=== PATIENT | female | born 1960 | race African-American/Black ===

== ENCOUNTER 2019-11-25 20:49 | Inpatient (IN) | payer SELFPAY ==
[~2019-11-25] VITALS: Ht 165.1 cm; Wt 72.6 kg
[2019-11-25 20:59] VITALS: Ht 165.1 cm; Wt 72.6 kg
[2019-11-25 22:32] LABS: BASOPHIL % 0.2 % (0-2); PLATELET COUNT 107 x10^3mcL (130-400); RED CELL DISTRIBUTION WIDTH 18.3 % (11.5-14.5)
[2019-11-25 23:32] LABS: BILIRUBIN TOTAL 2.2 mg/dL (0.20-1.00); CALCIUM 8.7 mg/dL (8.5-10.1); CARBON DIOXIDE 18.4 mmol/L (21-32); CREATININE SERUM 2.1 mg/dL (0.6-1.0); TOTAL PROTEIN, SERUM 7.1 g/dL (6.4-8.2)
[2019-11-25 23:33] LABS: ALBUMIN 2.4 g/dL (3.4-5.0); POTASSIUM SERUM 5.8 mmol/L (3.5-5.1)
[2019-11-26 00:19] LABS: CHOLESTEROL/HDL RATIO 7.6
[2019-11-26 00:29] LABS: UA SPECIFIC GRAVITY 1.025 (1.005-1.035); microscopic required? YES; urine erythrocyte 3+ (NEGATIVE)
[2019-11-26 00:34] LABS: AMPHETAMINE QUAL UR NONE DETECTED (See below)
[2019-11-26 01:44] VITALS: BP 116/83
[2019-11-26 05:57] VITALS: BP 106/77
[2019-11-26 08:02] LABS: C REACTIVE PROTEIN 12.1 mg/dL (<=0.9)
[2019-11-26 08:48] LABS: CARBON DIOXIDE 18.3 mmol/L (21-32); CREATININE SERUM 2.1 mg/dL (0.6-1.0); MAGNESIUM 2.6 mg/dL (1.8-2.4); PHOSPHOROUS 3.9 mg/dL (2.5-4.9); POTASSIUM SERUM 4.7 mmol/L (3.5-5.1)
[2019-11-26 09:10] LABS: BASOPHIL % 0 % (0-2); PLATELET COUNT 105 x10^3mcL (130-400); RED CELL DISTRIBUTION WIDTH 18.5 % (11.5-14.5)
[2019-11-26 09:20] VITALS: BP 106/80
[2019-11-26 13:12] VITALS: BP 97/78
[2019-11-26 16:46] VITALS: BP 100/76
[2019-11-26 22:36] VITALS: BP 91/69
[2019-11-27 05:59] VITALS: BP 114/69
[2019-11-27 07:03] LABS: BASOPHIL % 0 % (0-2); PLATELET COUNT 104 x10^3mcL (130-400); RED CELL DISTRIBUTION WIDTH 19.1 % (11.5-14.5)
[2019-11-27 07:04] LABS: CALCIUM 8.1 mg/dL (8.5-10.1); CARBON DIOXIDE 19.4 mmol/L (21-32); CREATININE SERUM 2.3 mg/dL (0.6-1.0); MAGNESIUM 2.8 mg/dL (1.8-2.4); PHOSPHOROUS 4.7 mg/dL (2.5-4.9); POTASSIUM SERUM 5.4 mmol/L (3.5-5.1)
[2019-11-27 09:36] VITALS: BP 115/83
[2019-11-27 15:01] VITALS: BP 105/72
[2019-11-27 18:40] VITALS: BP 113/76
[2019-11-27 21:10] VITALS: BP 109/72
[2019-11-28 06:21] VITALS: BP 109/76
[2019-11-28 07:34] LABS: BASOPHIL % 0 % (0-2); PLATELET COUNT 109 x10^3mcL (130-400); RED CELL DISTRIBUTION WIDTH 18.3 % (11.5-14.5)
[2019-11-28 07:56] VITALS: BP 109/70
[2019-11-28 08:21] LABS: CARBON DIOXIDE 21.9 mmol/L (21-32); CREATININE SERUM 2.2 mg/dL (0.6-1.0); MAGNESIUM 2.6 mg/dL (1.8-2.4); PHOSPHOROUS 3.6 mg/dL (2.5-4.9); POTASSIUM SERUM 3.9 mmol/L (3.5-5.1)
[2019-11-28 08:31] LABS: C REACTIVE PROTEIN 13.8 mg/dL (<=0.9)
[2019-11-28 11:53] VITALS: BP 108/75
[2019-11-28 16:00] VITALS: BP 110/88
[2019-11-28 21:22] VITALS: BP 112/80
[2019-11-29 05:32] VITALS: BP 116/81
[2019-11-29 07:30] LABS: CALCIUM 7.8 mg/dL (8.5-10.1); CARBON DIOXIDE 23.5 mmol/L (21-32); CREATININE SERUM 2.2 mg/dL (0.6-1.0); MAGNESIUM 2.3 mg/dL (1.8-2.4); PHOSPHOROUS 3.9 mg/dL (2.5-4.9)
[2019-11-29 07:32] LABS: POTASSIUM SERUM 2.8 mmol/L (3.5-5.1)
[2019-11-29 07:37] LABS: BASOPHIL % 0 % (0-2); PLATELET COUNT 108 x10^3mcL (130-400); RED CELL DISTRIBUTION WIDTH 18.1 % (11.5-14.5)
[2019-11-29 09:55] VITALS: BP 116/83
[2019-11-29 13:20] VITALS: BP 107/78
[2019-11-29 20:17] VITALS: BP 114/81
[2019-11-30 01:00] LABS: CALCIUM 7.7 mg/dL (8.5-10.1); CARBON DIOXIDE 24.5 mmol/L (21-32); CREATININE SERUM 2.2 mg/dL (0.6-1.0)
[2019-11-30 01:02] LABS: POTASSIUM SERUM 2.8 mmol/L (3.5-5.1)
[2019-11-30 06:18] VITALS: BP 101/66
[2019-11-30 08:35] VITALS: BP 107/77
[2019-11-30 08:35] LABS: CALCIUM 7.4 mg/dL (8.5-10.1); CARBON DIOXIDE 22.1 mmol/L (21-32); MAGNESIUM 2.2 mg/dL (1.8-2.4); PHOSPHOROUS 3.5 mg/dL (2.5-4.9); POTASSIUM SERUM 3.3 mmol/L (3.5-5.1)
[2019-11-30 08:39] LABS: BASOPHIL % 0 % (0-2); PLATELET COUNT 113 x10^3mcL (130-400); RED CELL DISTRIBUTION WIDTH 18.3 % (11.5-14.5)
[2019-11-30 12:09] VITALS: BP 103/82
[2019-11-30] MEDS ORDERED: LEVAQUIN500 M1 PO ×2 (12:25→12:45)
[2019-11-30] MEDS ORDERED: LIPI20 PO (12:25)
[2019-11-30] MEDS ORDERED: METOPROLOL SUCC25 M2 PO (12:26)
[2019-11-30] MEDS ORDERED: ECO81 PO (12:27)
[2019-11-30] MEDS ORDERED: KLOR-CON 1010 MEQ PO (12:28)
[2019-11-30] MEDS ORDERED: LASIX40 MG PO (12:28)
[2019-11-30 16:09] VITALS: BP 113/72
[2019-11-30 21:28] VITALS: BP 105/73
[2019-12-01 05:57] VITALS: BP 114/84
[2019-12-01 07:16] LABS: PLATELET COUNT 150 x10^3mcL (130-400)
[2019-12-01 07:26] LABS: BASOPHIL % 0 % (0-2); RED CELL DISTRIBUTION WIDTH 18.4 % (11.5-14.5)
[2019-12-01 07:45] LABS: CALCIUM 8.5 mg/dL (8.5-10.1); CARBON DIOXIDE 23.1 mmol/L (21-32); CREATININE SERUM 2.4 mg/dL (0.6-1.0); MAGNESIUM 2.1 mg/dL (1.8-2.4); PHOSPHOROUS 3.3 mg/dL (2.5-4.9)
[2019-12-01 09:21] VITALS: BP 108/74
[2019-12-01 12:09] VITALS: BP 99/70
[2019-12-01 17:26] VITALS: BP 98/73
[2019-12-01 22:55] VITALS: BP 107/77
[2019-12-02 05:31] VITALS: BP 104/83
[2019-12-02 06:59] LABS: BASOPHIL % 0.1 % (0-2); PLATELET COUNT 172 x10^3mcL (130-400)
[2019-12-02 07:29] LABS: CALCIUM 8.4 mg/dL (8.5-10.1); CARBON DIOXIDE 25.4 mmol/L (21-32); CREATININE SERUM 2.7 mg/dL (0.6-1.0); POTASSIUM SERUM 4.1 mmol/L (3.5-5.1)
[2019-12-02 08:00] LABS: RED CELL DISTRIBUTION WIDTH 18.5 % (11.5-14.5)
[2019-12-02 08:37] VITALS: BP 113/84
[2019-12-02 13:57] VITALS: BP 168/78
[2019-12-02 16:39] LABS: ALKALINE PHOSPHATASE 186 U/L (46-116); ALT/SGPT 32 U/L (14-59); AST/SGOT 38 U/L (15-37); BILIRUBIN DIRECT 0.65 mg/dL (0.0-0.2); BILIRUBIN TOTAL 0.92 mg/dL (0.20-1.00); TOTAL PROTEIN, SERUM 6.3 g/dL (6.4-8.2)
[2019-12-02 16:41] LABS: ALBUMIN 1.9 g/dL (3.4-5.0)
[2019-12-02 18:16] VITALS: BP 104/82; BP 163/64
[2019-12-02 19:20] VITALS: BP 107/82
[2019-12-03 05:46] VITALS: BP 101/72
[2019-12-03 09:23] LABS: CALCIUM 8.7 mg/dL (8.5-10.1); CARBON DIOXIDE 25.7 mmol/L (21-32); CREATININE SERUM 2.8 mg/dL (0.6-1.0); POTASSIUM SERUM 4.8 mmol/L (3.5-5.1)
[2019-12-03 09:28] VITALS: BP 110/76
[2019-12-03 14:00] VITALS: BP 107/79
[2019-12-03 18:38] VITALS: BP 110/80
[2019-12-03 19:10] VITALS: BP 112/79
[2019-12-04 06:12] VITALS: BP 103/72
[2019-12-04 07:57] LABS: CALCIUM 8.7 mg/dL (8.5-10.1); CREATININE SERUM 2.6 mg/dL (0.6-1.0); POTASSIUM SERUM 4.6 mmol/L (3.5-5.1)
[2019-12-04 08:25] VITALS: BP 106/79
[2019-12-04 11:20] VITALS: BP 104/71
[2019-12-04 16:20] VITALS: BP 113/81
[2019-12-04 21:29] VITALS: BP 109/78
[2019-12-05 05:29] VITALS: BP 114/66
[2019-12-05 07:18] LABS: PLATELET COUNT 253 x10^3mcL (130-400)
[2019-12-05 08:12] VITALS: BP 113/81
[2019-12-05 08:27] LABS: CALCIUM 8.6 mg/dL (8.5-10.1); CARBON DIOXIDE 27.1 mmol/L (21-32); CREATININE SERUM 2.4 mg/dL (0.6-1.0); MAGNESIUM 2.1 mg/dL (1.8-2.4); PHOSPHOROUS 3.2 mg/dL (2.5-4.9); POTASSIUM SERUM 4.7 mmol/L (3.5-5.1)
[2019-12-05 08:38] LABS: BASOPHIL % 0 % (0-2)
[2019-12-05 18:06] VITALS: BP 115/85
[2019-12-05 21:38] VITALS: BP 105/76
[2019-12-06 06:05] VITALS: BP 102/69
[2019-12-06 07:27] LABS: CALCIUM 8.8 mg/dL (8.5-10.1); CREATININE SERUM 2.3 mg/dL (0.6-1.0); POTASSIUM SERUM 4.5 mmol/L (3.5-5.1)
[2019-12-06 07:31] LABS: MAGNESIUM 2.4 mg/dL (1.8-2.4); PHOSPHOROUS 3.5 mg/dL (2.5-4.9)
[2019-12-06 07:56] LABS: BASOPHIL % 0.1 % (0-2); PLATELET COUNT 250 x10^3mcL (130-400); RED CELL DISTRIBUTION WIDTH 18.3 % (11.5-14.5)
[2019-12-06 09:53] VITALS: BP 96/67
[2019-12-06 12:14] VITALS: BP 102/76
[2019-12-06 16:40] VITALS: BP 102/76
[2019-12-06 16:56] VITALS: BP 106/61
== END 2019-12-06 18:53 | disposition home or self-care (01) | DRG 871 ==
LOC: ED 20:49 → MU 23:43 → DU 23:43 → MU 11-30 11:11
PROVIDERS: Emergency Medicine; Family Medicine; Internal Medicine; Internal Medicine Nephrology; ADMIT Student in an Organized Health Care Education/Training Program; ATTEND Student in an Organized Health Care Education/Training Program
DX: A41.9 Sepsis, unspecified organism (principal); N17.0 Acute kidney failure with tubular necrosis; E43 Unspecified severe protein-calorie malnutrition; J96.01 Acute respiratory failure with hypoxia; I50.43 Acute on chronic combined systolic (congestive) and diastolic (congestive) heart failure; I21.A1 Myocardial infarction type 2; J18.9 Pneumonia, unspecified organism; E87.1 Hypo-osmolality and hyponatremia; J91.8 Pleural effusion in other conditions classified elsewhere; N39.0 Urinary tract infection, site not specified; E87.2 Acidosis; I42.9 Cardiomyopathy, unspecified; I25.10 Atherosclerotic heart disease of native coronary artery without angina pectoris; F17.210 Nicotine dependence, cigarettes, uncomplicated; Z20.828 Contact with and (suspected) exposure to other viral communicable diseases; E87.5 Hyperkalemia; D69.6 Thrombocytopenia, unspecified; R74.0 Nonspecific elevation of levels of transaminase and lactic acid dehydrogenase [LDH]; I73.9 Peripheral vascular disease, unspecified; I08.1 Rheumatic disorders of both mitral and tricuspid valves; L97.519 Non-pressure chronic ulcer of other part of right foot with unspecified severity; N18.9 Chronic kidney disease, unspecified; L97.529 Non-pressure chronic ulcer of other part of left foot with unspecified severity; Z95.5 Presence of coronary angioplasty implant and graft; Z68.26 Body mass index [BMI] 26.0-26.9, adult; Z23 Encounter for immunization; Z79.899 Other long term (current) drug therapy
CPT/HCPCS: 36600; 82962; 83880; 85378; 90715; 97110-GP; 97112-GP; 97530-GP; G0378; J0456; J0690; J0696; J1644; J1815; J1885; J1940; J1956; J2405; J2543; J3370; J3480; J3490; J7030; J7040; J7050; J7060; Q0092; U0003-CS

== ENCOUNTER 2019-12-06 21:05 | Inpatient (IN) | payer MEDICAID ==
[~2019-12-06] VITALS: Ht 162.6 cm; Wt 80.5 kg
[~2019-12-06 21:05] MED LIST: ECO81 PO; KLOR-CON 1010 MEQ PO; LASIX40 MG PO; LEVAQUIN500 M1 PO; LIPI20 PO; METOPROLOL SUCC25 M2 PO
[2019-12-06 22:27] VITALS: Ht 162.6 cm; Wt 80.5 kg
[2019-12-07 00:43] LABS: BASOPHIL % 0.1 % (0-2); PLATELET COUNT 264 x10^3mcL (130-400); RED CELL DISTRIBUTION WIDTH 18.7 % (11.5-14.5)
[2019-12-07 00:53] LABS: CALCIUM 8.8 mg/dL (8.5-10.1); CREATININE SERUM 2.1 mg/dL (0.6-1.0); POTASSIUM SERUM 4.8 mmol/L (3.5-5.1)
[2019-12-07 03:09] VITALS: BP 121/84
[2019-12-07 08:58] VITALS: BP 105/72
[2019-12-07 16:13] VITALS: BP 99/73
[2019-12-07 16:19] LABS: UA SPECIFIC GRAVITY 1.015 (1.005-1.035); microscopic required? YES; urine erythrocyte 1+ (NEGATIVE)
[2019-12-07 20:21] VITALS: BP 105/80
[2019-12-08 08:03] LABS: BASOPHIL % 0.1 % (0-2); PLATELET COUNT 237 x10^3mcL (130-400)
[2019-12-08 08:22] LABS: CALCIUM 8.5 mg/dL (8.5-10.1); CARBON DIOXIDE 22.9 mmol/L (21-32); CREATININE SERUM 2.2 mg/dL (0.6-1.0); MAGNESIUM 2.1 mg/dL (1.8-2.4); PHOSPHOROUS 3.9 mg/dL (2.5-4.9); POTASSIUM SERUM 4.6 mmol/L (3.5-5.1)
[2019-12-08 08:47] VITALS: BP 117/82
[2019-12-08 09:00] LABS: RED CELL DISTRIBUTION WIDTH 19.1 % (11.5-14.5)
[2019-12-08 12:51] VITALS: BP 107/78
[2019-12-08 16:56] VITALS: BP 106/60
[2019-12-08 20:29] VITALS: BP 113/82
[2019-12-09 05:41] VITALS: BP 103/75
[2019-12-09 07:41] LABS: CALCIUM 8.7 mg/dL (8.5-10.1); CARBON DIOXIDE 22.7 mmol/L (21-32); CREATININE SERUM 2.1 mg/dL (0.6-1.0); MAGNESIUM 2.1 mg/dL (1.8-2.4); PHOSPHOROUS 3.8 mg/dL (2.5-4.9); POTASSIUM SERUM 4.7 mmol/L (3.5-5.1)
[2019-12-09 07:46] LABS: PLATELET COUNT 219 x10^3mcL (130-400)
[2019-12-09 09:01] LABS: BASOPHIL % 0 % (0-2)
[2019-12-09 09:07] VITALS: BP 114/78
[2019-12-09 12:59] VITALS: BP 109/71
[2019-12-09 17:35] VITALS: BP 109/68
[2019-12-09 21:46] VITALS: BP 100/74
[2019-12-10 05:33] VITALS: BP 119/74
[2019-12-10 07:58] LABS: CALCIUM 8.4 mg/dL (8.5-10.1); CARBON DIOXIDE 24.8 mmol/L (21-32); PHOSPHOROUS 3.5 mg/dL (2.5-4.9); POTASSIUM SERUM 5.5 mmol/L (3.5-5.1)
[2019-12-10 09:10] VITALS: BP 113/76
[2019-12-10 09:16] LABS: BASOPHIL % 0.1 % (0-2); PLATELET COUNT 215 x10^3mcL (130-400)
[2019-12-10 13:08] VITALS: BP 115/78
[2019-12-10 17:50] VITALS: BP 103/72
[2019-12-10 21:14] VITALS: BP 98/72
[2019-12-11 06:06] VITALS: BP 103/71
[2019-12-11 07:28] LABS: BASOPHIL % 0.1 % (0-2); PLATELET COUNT 194 x10^3mcL (130-400)
[2019-12-11 07:47] LABS: CALCIUM 8.1 mg/dL (8.5-10.1); CARBON DIOXIDE 22.9 mmol/L (21-32); CREATININE SERUM 2.1 mg/dL (0.6-1.0); MAGNESIUM 2.2 mg/dL (1.8-2.4); PHOSPHOROUS 3.6 mg/dL (2.5-4.9); POTASSIUM SERUM 4.8 mmol/L (3.5-5.1)
[2019-12-11 07:49] LABS: RED CELL DISTRIBUTION WIDTH 20.2 % (11.5-14.5)
[2019-12-11 08:26] VITALS: BP 111/80
[2019-12-11 12:20] VITALS: BP 103/76
[2019-12-11 16:57] VITALS: BP 105/74
[2019-12-11 21:31] VITALS: BP 99/67
[2019-12-12 05:46] VITALS: BP 106/71
[2019-12-12 08:24] LABS: BASOPHIL % 0.1 % (0-2); PLATELET COUNT 190 x10^3mcL (130-400)
[2019-12-12 08:30] LABS: CALCIUM 8.3 mg/dL (8.5-10.1); CARBON DIOXIDE 23.1 mmol/L (21-32); MAGNESIUM 2.1 mg/dL (1.8-2.4); PHOSPHOROUS 3.9 mg/dL (2.5-4.9); POTASSIUM SERUM 4.5 mmol/L (3.5-5.1)
[2019-12-12 09:09] VITALS: BP 116/88
[2019-12-12 12:25] VITALS: BP 103/72
[2019-12-12 12:34] VITALS: BP 103/72
[2019-12-12 17:17] VITALS: BP 101/70
[2019-12-12 21:27] VITALS: BP 103/71
[2019-12-13 04:31] VITALS: BP 115/71
[2019-12-13 08:22] LABS: CALCIUM 8.3 mg/dL (8.5-10.1); CARBON DIOXIDE 22.7 mmol/L (21-32); CREATININE SERUM 1.8 mg/dL (0.6-1.0); MAGNESIUM 2.1 mg/dL (1.8-2.4); PHOSPHOROUS 3.8 mg/dL (2.5-4.9); POTASSIUM SERUM 4.5 mmol/L (3.5-5.1)
[2019-12-13 08:36] LABS: BASOPHIL % 0.1 % (0-2); PLATELET COUNT 172 x10^3mcL (130-400)
[2019-12-13 08:37] LABS: RED CELL DISTRIBUTION WIDTH 20.1 % (11.5-14.5)
[2019-12-13 08:38] LABS: rbc morphology (normal/abnorm) ABNORMAL (NORMAL)
[2019-12-13 09:31] VITALS: BP 101/68
[2019-12-13 13:31] VITALS: BP 116/84
[2019-12-13 17:44] VITALS: BP 100/63
[2019-12-13 20:45] VITALS: BP 105/79
[2019-12-14 05:15] VITALS: BP 104/74
[2019-12-14 06:57] LABS: BASOPHIL % 0.3 % (0-2); PLATELET COUNT 165 x10^3mcL (130-400)
[2019-12-14 07:15] LABS: CALCIUM 8.3 mg/dL (8.5-10.1); CARBON DIOXIDE 22.2 mmol/L (21-32); CREATININE SERUM 1.8 mg/dL (0.6-1.0); MAGNESIUM 2.2 mg/dL (1.8-2.4); PHOSPHOROUS 4.1 mg/dL (2.5-4.9); POTASSIUM SERUM 4.7 mmol/L (3.5-5.1)
[2019-12-14 07:17] LABS: RED CELL DISTRIBUTION WIDTH 19.7 % (11.5-14.5)
[2019-12-14 09:37] VITALS: BP 107/74
[2019-12-14 12:58] VITALS: BP 97/64
[2019-12-14 18:00] VITALS: BP 105/78
[2019-12-14 22:24] VITALS: BP 101/73
[2019-12-15 05:47] VITALS: BP 100/70
[2019-12-15 07:30] LABS: BASOPHIL % 0.3 % (0-2); PLATELET COUNT 154 x10^3mcL (130-400)
[2019-12-15 08:07] LABS: CALCIUM 8.3 mg/dL (8.5-10.1); CARBON DIOXIDE 26.4 mmol/L (21-32); CREATININE SERUM 1.8 mg/dL (0.6-1.0); POTASSIUM SERUM 5.1 mmol/L (3.5-5.1)
[2019-12-15 08:25] LABS: burr cell (echinocyte) 1+; ovalocyte/elliptocyte 1+; rbc morphology (normal/abnorm) ABNORMAL (NORMAL)
[2019-12-15 08:39] VITALS: BP 95/65
[2019-12-15 12:59] VITALS: BP 99/65
[2019-12-15 17:12] VITALS: BP 92/69
[2019-12-15 21:24] VITALS: BP 91/63
[2019-12-16 05:42] VITALS: BP 90/64
[2019-12-16 09:06] VITALS: BP 103/72
[2019-12-16 09:40] LABS: CALCIUM 8.2 mg/dL (8.5-10.1); CARBON DIOXIDE 20.6 mmol/L (21-32); CREATININE SERUM 1.9 mg/dL (0.6-1.0); POTASSIUM SERUM 5.1 mmol/L (3.5-5.1)
[2019-12-16 10:51] LABS: BASOPHIL % 0.1 % (0-2); PLATELET COUNT 140 x10^3mcL (130-400); RED CELL DISTRIBUTION WIDTH 20.3 % (11.5-14.5)
[2019-12-16 12:44] VITALS: BP 101/71
[2019-12-16 13:55] LABS: burr cell (echinocyte) 2+; ovalocyte/elliptocyte 1+; rbc morphology (normal/abnorm) ABNORMAL (NORMAL)
[2019-12-16 17:04] VITALS: BP 113/74
[2019-12-16 21:17] VITALS: BP 104/71
[2019-12-17 05:49] VITALS: BP 95/67
[2019-12-17 09:34] VITALS: BP 109/76
[2019-12-17 13:40] VITALS: BP 99/73
[2019-12-17 18:49] VITALS: BP 116/71
[2019-12-17 20:36] VITALS: BP 106/77
[2019-12-18 06:01] VITALS: BP 110/70
[2019-12-18 08:30] VITALS: BP 95/62
[2019-12-18 12:30] VITALS: BP 110/77
[2019-12-18 16:30] VITALS: BP 104/72
[2019-12-18 22:00] VITALS: BP 102/67
[2019-12-19 05:53] VITALS: BP 97/66
[2019-12-19 08:32] VITALS: BP 100/68
[2019-12-19 12:52] VITALS: BP 93/70
[2019-12-19 16:38] VITALS: BP 104/70
[2019-12-19 20:34] VITALS: BP 100/67
[2019-12-20 05:44] VITALS: BP 104/71
[2019-12-20 09:03] VITALS: BP 100/70
[2019-12-20 09:17] LABS: CALCIUM 8.7 mg/dL (8.5-10.1); CARBON DIOXIDE 22.8 mmol/L (21-32); CREATININE SERUM 3.2 mg/dL (0.6-1.0)
[2019-12-20 09:20] LABS: POTASSIUM SERUM 5.6 mmol/L (3.5-5.1)
[2019-12-20 12:34] VITALS: BP 101/64
[2019-12-20 20:52] VITALS: BP 99/64
[2019-12-21 05:31] VITALS: BP 103/73
[2019-12-21 07:38] LABS: BASOPHIL % 0.1 % (0-2); PLATELET COUNT 207 x10^3mcL (130-400)
[2019-12-21 07:45] LABS: RED CELL DISTRIBUTION WIDTH 20.2 % (11.5-14.5)
[2019-12-21 08:00] VITALS: BP 116/83
[2019-12-21 08:17] LABS: CALCIUM 8.6 mg/dL (8.5-10.1); CARBON DIOXIDE 20.2 mmol/L (21-32); CREATININE SERUM 3.6 mg/dL (0.6-1.0); MAGNESIUM 2.4 mg/dL (1.8-2.4); PHOSPHOROUS 6.4 mg/dL (2.5-4.9); POTASSIUM SERUM 5.2 mmol/L (3.5-5.1)
[2019-12-21 10:20] LABS: rbc morphology (normal/abnorm) ABNORMAL (NORMAL)
[2019-12-21 10:21] LABS: burr cell (echinocyte) 1+
[2019-12-21 11:44] VITALS: BP 110/81
[2019-12-21 15:50] LABS: BASOPHIL % 0.1 % (0-2); PLATELET COUNT 199 x10^3mcL (130-400)
[2019-12-21 16:19] LABS: CALCIUM 8.7 mg/dL (8.5-10.1); CREATININE SERUM 3.8 mg/dL (0.6-1.0); POTASSIUM SERUM 5.1 mmol/L (3.5-5.1)
[2019-12-21 16:43] VITALS: BP 96/72
[2019-12-21 20:01] VITALS: BP 119/82
[2019-12-22 05:03] VITALS: BP 118/80
[2019-12-22 10:09] VITALS: BP 112/77
[2019-12-22 11:00] LABS: CARBON DIOXIDE 18.4 mmol/L (21-32); MAGNESIUM 2.6 mg/dL (1.8-2.4); PHOSPHOROUS 7.7 mg/dL (2.5-4.9); POTASSIUM SERUM 4.8 mmol/L (3.5-5.1)
[2019-12-22 11:05] LABS: CREATININE SERUM 4.2 mg/dL (0.6-1.0)
[2019-12-22 11:18] LABS: PLATELET COUNT 192 x10^3mcL (130-400)
[2019-12-22 11:22] LABS: BASOPHIL % 0 % (0-2); RED CELL DISTRIBUTION WIDTH 20.1 % (11.5-14.5)
[2019-12-22 13:29] VITALS: BP 103/82
[2019-12-22 18:56] VITALS: BP 111/81
[2019-12-22 21:57] VITALS: BP 99/73
[2019-12-23 06:08] VITALS: BP 117/79
[2019-12-23 08:32] VITALS: BP 131/93
[2019-12-23 10:43] LABS: CALCIUM 8.9 mg/dL (8.5-10.1); POTASSIUM SERUM 4.9 mmol/L (3.5-5.1)
[2019-12-23 10:46] LABS: CREATININE SERUM 4.6 mg/dL (0.6-1.0)
[2019-12-23 11:26] LABS: BASOPHIL % 0 % (0-2); PLATELET COUNT 196 x10^3mcL (130-400); RED CELL DISTRIBUTION WIDTH 19.9 % (11.5-14.5)
[2019-12-23 16:56] VITALS: BP 119/90
[2019-12-23 20:31] VITALS: BP 106/83
[2019-12-24 06:00] VITALS: BP 121/86
[2019-12-24 07:33] LABS: BASOPHIL % 0.1 % (0-2); PLATELET COUNT 213 x10^3mcL (130-400)
[2019-12-24 07:49] LABS: RED CELL DISTRIBUTION WIDTH 20.4 % (11.5-14.5)
[2019-12-24 09:11] LABS: CALCIUM 9.3 mg/dL (8.5-10.1)
[2019-12-24 09:26] LABS: POTASSIUM SERUM 5.9 mmol/L (3.5-5.1)
[2019-12-24 09:27] LABS: CREATININE SERUM 5.5 mg/dL (0.6-1.0)
[2019-12-24 09:35] VITALS: BP 134/89
[2019-12-24 13:05] VITALS: BP 133/88
[2019-12-24 20:35] VITALS: BP 128/85
[2019-12-25 05:32] VITALS: BP 107/73
[2019-12-25 07:30] LABS: BASOPHIL % 0.1 % (0-2); PLATELET COUNT 177 x10^3mcL (130-400)
[2019-12-25 07:34] LABS: CALCIUM 8.6 mg/dL (8.5-10.1); CARBON DIOXIDE 16.2 mmol/L (21-32); POTASSIUM SERUM 5.2 mmol/L (3.5-5.1)
[2019-12-25 07:36] LABS: CREATININE SERUM 5.6 mg/dL (0.6-1.0)
[2019-12-25 08:12] LABS: RED CELL DISTRIBUTION WIDTH 19.5 % (11.5-14.5)
[2019-12-25 09:43] VITALS: BP 113/77
[2019-12-25 13:33] VITALS: BP 107/75
[2019-12-25 18:28] VITALS: BP 110/71
[2019-12-25 19:21] VITALS: BP 98/73
[2019-12-26 02:30] VITALS: BP 107/78
[2019-12-26 04:22] VITALS: BP 97/68
[2019-12-26 10:41] VITALS: BP 98/50
[2019-12-26 17:01] VITALS: BP 101/74
[2019-12-26 21:15] VITALS: BP 107/73
[2019-12-27 05:37] VITALS: BP 114/75
[2019-12-27 08:00] VITALS: BP 118/82
[2019-12-27 18:43] VITALS: BP 106/72
[2019-12-27 21:17] VITALS: BP 110/87
[2019-12-28 06:28] VITALS: BP 117/80
[2019-12-28 10:19] VITALS: BP 125/76
[2019-12-28] MEDS ORDERED: ECO81 PO (18:32)
[2019-12-28] MEDS ORDERED: LIPI20 PO (18:32)
[2019-12-28] MEDS ORDERED: TOP50 PO (18:32)
[2019-12-28 18:59] VITALS: BP 113/74
[2019-12-28 19:02] VITALS: BP 113/74
== END 2019-12-28 21:24 | DRG 720 ==
LOC: ED 21:05 → MU 23:22 → DU 23:22 → MU 12-07 03:04 → DU 12-21 14:33
PROVIDERS: Family Medicine; Internal Medicine; Internal Medicine Nephrology; ADMIT Internal Medicine; ATTEND Internal Medicine
DX: A41.9 Sepsis, unspecified organism (principal); N17.0 Acute kidney failure with tubular necrosis; G93.41 Metabolic encephalopathy; I42.9 Cardiomyopathy, unspecified; N18.4 Chronic kidney disease, stage 4 (severe); E87.1 Hypo-osmolality and hyponatremia; I13.0 Hypertensive heart and chronic kidney disease with heart failure and stage 1 through stage 4 chronic kidney disease, or unspecified chronic kidney disease; I50.22 Chronic systolic (congestive) heart failure; E87.5 Hyperkalemia; I73.9 Peripheral vascular disease, unspecified; I99.8 Other disorder of circulatory system; Z20.828 Contact with and (suspected) exposure to other viral communicable diseases; I25.10 Atherosclerotic heart disease of native coronary artery without angina pectoris; I16.9 Hypertensive crisis, unspecified; Z51.5 Encounter for palliative care; E16.2 Hypoglycemia, unspecified; F29 Unspecified psychosis not due to a substance or known physiological condition; E78.5 Hyperlipidemia, unspecified; L97.919 Non-pressure chronic ulcer of unspecified part of right lower leg with unspecified severity; F43.20 Adjustment disorder, unspecified; I73.89 Other specified peripheral vascular diseases; Z79.82 Long term (current) use of aspirin; I25.2 Old myocardial infarction; Z79.899 Other long term (current) drug therapy
CPT/HCPCS: 82962; 97110-GP; 97116-GP; 97530-GP; G0378; J0610; J0696; J1940; J1956; J2270; J2543; J3370; J3490; J7030; J7040; J7050; P9047; Q0092; U0003-CS